=== PATIENT | female | born 1990 | race Caucasian/White ===

== ENCOUNTER → 2019-03-05 21:46 | Observation (INO) ==
[2019-03-05 19:09] LABS: Bilirubin,Urine Negative (Negative); Blood,Urine Negative (Negative); Clarity,Urine Turbid (Clear); Color,Urine Yellow (Yellow); Glucose,Urine (UA) Normal (Normal); Ketones,Urine Negative (Negative); Leukocyte Esterase,Urine Negative (Negative); Nitrite,Urine Negative (Negative); Protein,Urine Trace mg/dL (Neg-Trace); Specific Gravity,Urine 1.027 (1.010-1.025); Urobilinogen,Urine Normal (Normal)
[2019-03-05 19:14] LABS: Bacteria,Urine Few per hpf (None-Few); Hyaline Casts,Urine None Seen per lpf (None-Few); Squamous Epithelial Cell,Urine Many per lpf (None-Few)
[2019-03-05 19:18] LABS: Amphetamine Screen,Urine Negative ng/mL (Cutoff=1000); Barbiturate Screen,Urine Negative ng/mL (Cutoff=200); Benzodiazepines Screen,Urine Negative ng/mL (Cutoff=200); Cannabinoid Screen,Urine Negative ng/mL (Cutoff = 50); Cocaine Screen,Urine Negative ng/mL (Cutoff= 300); Opiate Screen,Urine Negative ng/mL (Cutoff=300); Phencyclidine Screen,Urine Negative ng/mL (Cutoff=25)
--- NOTE | 2019-03-05 19:40 | Discharge Summary ---
Date of Encounter: 03/05/19 Time of Encounter: 19:39 - Discharge Diagnosis (1) 29 weeks gestation of Priority: Primary Status: Acute Comments: Admit to observation for complaint of possible fluid leakage. FHR 130 bpm, moderate variability, appropriate for gestational age. (2) Vaginal discharge during in third trimester Priority: Secondary Status: Acute Comments: Vaginosis panel collected, will treat as appropriate for any positive results. FERN and nitrazine negative. - Discharge Medications Prescriptions: No Action Fexofenadine/Pseudoephedrine [Kristin-D 24 Hour Tablet] 1 tab PO DAILY Pnv Plus Multivit Tab 1 tab PO DAILY Benefiber Healthy Shape 2 drop PO DAILY Home Medications: Benefiber Healthy Shape 2 drop PO DAILY 03/05/19 [History] Fexofenadine/Pseudoephedrine [Kristin-D 24 Hour Tablet] 1 tab PO DAILY 03/05/19 [History] Pnv Plus Multivit Tab 1 tab PO DAILY 03/05/19 [History] Allergies/Adverse Reactions: Allergy/AdvReac Type Severity Reaction Status Date / Time pantoprazole Allergy Hives Verified 03/05/19 18:25 pseudoephedrine AdvReac See Verified 03/05/19 18:26 [From Sudafed] Comments Data Procedures and tests throughout hospitalization: Laboratory Tests 03/05/19 03/05/19 18:50 18:50 Urine Color Yellow Urine Clarity Turbid A Urine pH 7.0 Ur Specific [place] 1.027 H Urine Protein Trace Urine Glucose (UA) Normal Urine Ketones Negative Urine Blood Negative Urine Nitrite Negative Urine Bilirubin Negative Urine Urobilinogen Normal Ur Leukocyte Esterase Negative Urine Microscopic WBC 3-5 H Ur Squamous Epith Cells Many H Urine Bacteria Few Hyaline Casts None Seen Ur Culture Indicated? YES A Urine Opiates Screen Negative Ur Buprenorphine Scrn Negative Ur Barbiturates Screen Negative Ur Phencyclidine Scrn Negative Ur Amphetamines Screen Negative U Benzodiazepines Scrn Negative Urine Cocaine Screen Negative U Marijuana (THC) Screen Negative Ur Drug Screen Interp See Below Labs on day of discharge: Labs from last 24 hours 03/05/19 03/05/19 18:50 18:50 Urine Color Yellow Urine Clarity Turbid A Urine pH 7.0 Ur Specific [place] 1.027 H Urine Protein Trace Urine Glucose (UA) Normal Urine Ketones Negative Urine Blood Negative Urine Nitrite Negative Urine Bilirubin Negative Urine Urobilinogen Normal Ur Leukocyte Esterase Negative Urine Microscopic WBC 3-5 H Ur Squamous Epith Cells Many H Urine Bacteria Few Hyaline Casts None Seen Ur Culture Indicated? YES A Urine Opiates Screen Negative Ur Buprenorphine Scrn Negative Ur Barbiturates Screen Negative Ur Phencyclidine Scrn Negative Ur Amphetamines Screen Negative U Benzodiazepines Scrn Negative Urine Cocaine Screen Negative U Marijuana (THC) Screen Negative Ur Drug Screen Interp See Below Date of admission: 03/05/19 17:45 Discharging clinician: Karuna Lewis Anticipated date of discharge: 03/05/19 - Patient Status Disposition: Home, Self-Care Condition: Good Functional capacity at discharge: independent ambulation Overall status at discharge: patient is progressing back to baseline - Discharge Instructions Follow Up With: Marysol Velasco CNM [Non-Partnered Physician] - - Diet and Activity Activity: resume usual activities as tolerated Diet: regular diet 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 Denies odor or color to the fluid. On admit, nitrazine was negative. SSE completed and moderate amount of thin white vaginal discharge noted and small amount of thick mucous noted adhered to vaginal wall. Sample obtained for vaginosis panel and sent to the lab. Will treat as indicated for any positive results. Some irregular contractions were noted so one dose of SQ Terbutaline was given and soon after no contractions were visualized. Patient was PO hydrated and began feeling less cramping discomfort. She reports positive movement, denies vaginal bleeding. Time Attestation: Total time spent providing and/or coordinating discharge services: Time Spent: Less than 30 minutes Exam - Constitutional General appearance IM: A&O X 3, pleasant, no acute distress, answers questions appropriately - Respiratory Respiratory exam: Present: CTAB. Absent: respiratory distress - Cardiovascular Cardiovascular exam IM: Present: RRR, +S1, +S2. Absent: irregular rhythm - GI/Abdominal GI/Abdominal exam IM: normal bowel sounds, soft - Rectal Rectal exam: deferred - External exam: normal external exam - Extremities Exam Extremities exam IM: Present: full ROM, normal capillary refill, normal inspection. Absent: calf tenderness - Neurological Exam Neurological exam: alert, normal gait, oriented X3 - VTE Reasons for not Prescribing Prophylaxis: Treatment not Indicated - Low risk for VTE
[2019-03-05 20:57] LABS: Gardnerella DNA Not Detected (Not Detect); Trichomonas DNA Not Detected (Not Detect)
[2019-03-05 20:58] LABS: Candida DNA Not Detected (Not Detect)
[~2019-03-05 21:46] MED LIST: Terbutaline 1 MG/ML VIAL SQ ONE
== END | disposition home or self-care (01) ==
LOC: 1NENULAB
PROVIDERS: ADMIT Registered Nurse; ATTEND Registered Nurse

== ENCOUNTER → 2019-05-01 20:40 | Observation (INO) ==
[2019-05-01 18:21] LABS: Amphetamine Screen,Urine Negative ng/mL (Cutoff=1000); Barbiturate Screen,Urine Negative ng/mL (Cutoff=200); Benzodiazepines Screen,Urine Negative ng/mL (Cutoff=200); Cannabinoid Screen,Urine Negative ng/mL (Cutoff = 50); Cocaine Screen,Urine Negative ng/mL (Cutoff= 300); Opiate Screen,Urine Negative ng/mL (Cutoff=300); Phencyclidine Screen,Urine Negative ng/mL (Cutoff=25)
--- NOTE | 2019-05-01 20:39 | Discharge Summary ---
Date of Encounter: 05/01/19 Time of Encounter: 20:40 - Discharge Diagnosis (1) 38 weeks gestation of Priority: Primary Status: Acute Comments: admitted for labor evaluation no cervical change false labor (2) NST (non-stress test) reactive on surveillance Priority: Secondary Status: Acute Comments: FHR 125 bpm moderate variability +15x15 accels no decels noted. Cat. 1 tracing - Discharge Medications Prescriptions: No Action Fexofenadine/Pseudoephedrine [Kristin-D 24 Hour Tablet] 180 mg PO DAILY Pnv Plus Multivit Tab 1 tab PO DAILY Benefiber Healthy Shape 2 drop PO DAILY Home Medications: Benefiber Healthy Shape 2 drop PO DAILY 03/05/19 [History] Fexofenadine/Pseudoephedrine [Kristin-D 24 Hour Tablet] 180 mg PO DAILY 03/05/19 [History] Pnv Plus Multivit Tab 1 tab PO DAILY 03/05/19 [History] Allergies/Adverse Reactions: Allergy/AdvReac Type Severity Reaction Status Date / Time pantoprazole Allergy Hives Verified 03/05/19 18:25 pseudoephedrine AdvReac See Verified 03/05/19 18:26 [From Sudafed] Comments Data Procedures and tests throughout hospitalization: Laboratory Tests 05/01/19 18:00 Urine Opiates Screen Negative Ur Buprenorphine Scrn Negative Ur Barbiturates Screen Negative Ur Phencyclidine Scrn Negative Ur Amphetamines Screen Negative U Benzodiazepines Scrn Negative Urine Cocaine Screen Negative U Marijuana (THC) Screen Negative Ur Drug Screen Interp See Below Labs on day of discharge: Labs from last 24 hours 05/01/19 18:00 Urine Opiates Screen Negative Ur Buprenorphine Scrn Negative Ur Barbiturates Screen Negative Ur Phencyclidine Scrn Negative Ur Amphetamines Screen Negative U Benzodiazepines Scrn Negative Urine Cocaine Screen Negative U Marijuana (THC) Screen Negative Ur Drug Screen Interp See Below Date of admission: 05/01/19 17:47 Discharging clinician: Mckayla Hernadez Anticipated date of discharge: 05/01/19 - Patient Status Disposition: Home, Self-Care Condition: Good Functional capacity at discharge: independent ambulation - Discharge Instructions Follow Up With: Denisse Vázquez [Advanced Practice Nurse] - - Diet and Activity Activity: increase activity as tolerated Diet: regular diet 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 Patient denies any LOF or VB. Patient reports good movement Time Attestation: Total time spent providing and/or coordinating discharge services: Time Spent: Less than 30 minutes Exam - Constitutional General appearance IM: A&O X 3, no acute distress, answers questions appropriately - Respiratory Respiratory exam: Present: CTAB - Cardiovascular Cardiovascular exam IM: Present: RRR, +S1, +S2 - GI/Abdominal GI/Abdominal exam IM: normal bowel sounds - Other Additional findings: SVE 2/80/-1 per RN no cervical change after 2 hours. FHR 125 bpm moderate variability +15x15 accels no decels noted. Irregular contractions noted. CAt. 1 tracing - VTE Reasons for not Prescribing Prophylaxis: Treatment not Indicated - Low risk for VTE
== END | disposition home or self-care (01) ==
LOC: 1NENULAB
PROVIDERS: ADMIT Advanced Practice Midwife; ATTEND Advanced Practice Midwife

== ENCOUNTER 2019-05-03 02:37 | Inpatient (IN) ==
[2019-05-03] MEDS ORDERED: Naloxone 0.4 MG/ML INJ IVP PRN (02:52)
[2019-05-03] MEDS ORDERED: Famotidine 20 MG/2 ML VIAL IVP PRN (02:52)
[2019-05-03] MEDS ORDERED: Ondansetron 4 MG/2 ML VIAL IVP PRN (02:52)
[2019-05-03] MEDS ORDERED: Metoclopramide 10 MG/2 ML VIAL IVP PRN (02:52)
[2019-05-03] MEDS ORDERED: Ringers Solution, Lactated 1,000 ML IVC SCH (03:00)
[2019-05-03 03:29] LABS: Basophils % 0.4 %; Eosinophils # 0.1 K/mcL (0.0-0.6); Eosinophils % 0.6 %; Hematocrit 40.4 % (35.3-44.9); Hemoglobin 13.8 g/dL (11.5-15.4); Immature Granulocytes % 0.3 % (0-4); Immature Platelets 26.8 % (1.1-6.1); Lymphocytes # 2.1 K/mcL (0.6-4.6); Lymphocytes % 20.6 %; Mean Corpuscular HGB Conc 34.2 g/dL (31.6-35.5); Mean Corpuscular Hemoglobin 33.2 pg (28.0-33.3); Mean Corpuscular Volume 97.1 fL (83.0-100.0); Mean Platelet Volume 14.2 fL (9.4-12.4); Monocytes # 0.7 K/mcL (0.0-1.3); Neutrophils # 7.1 K/mcL (1.6-8.9); Platelet Count 108 K/mcL (140-400); Red Blood Count 4.16 M/mcL (3.82-4.97); Red Cell Distribution Width 12.3 % (11.5-14.5); Segmented Neutrophils % 71.1 %
[2019-05-03 03:33] LABS: Amphetamine Screen,Urine Negative ng/mL (Cutoff=1000); Barbiturate Screen,Urine Negative ng/mL (Cutoff=200); Benzodiazepines Screen,Urine Negative ng/mL (Cutoff=200); Cannabinoid Screen,Urine Negative ng/mL (Cutoff = 50); Cocaine Screen,Urine Negative ng/mL (Cutoff= 300); Opiate Screen,Urine Negative ng/mL (Cutoff=300); Phencyclidine Screen,Urine Negative ng/mL (Cutoff=25)
--- NOTE | 2019-05-03 05:58 | OB/GYN History & Physical ---
Date of Encounter: 05/03/19 Time of Encounter: 05:54 Assessment and Plan (1) SROM (spontaneous rupture of membranes) Current visit: Yes Status: Acute SROM at 0130 for clear fluid. Admit for expectant management. Will augment only if necessary. Anticipate . (2) Rh negative state in antepartum period Current visit: Yes Status: Acute (3) 38 weeks gestation of Current visit: No Status: Acute History of Present Illness Chief complaint: SROM 0130 HPI: Ms. Saeed is a 28 year old female presenting at 38w2d with c/o a large gush of clear fluid at 0130. She has continued to leak since. She also reports contractions but they were irregular at time of arrival. This has been uncomplicated other than macrosomia with weighing 3346g 90%tile at 36 weeks. A negative Rubella immune Varicella immune Serologies negative GBS negative Past Med Surg Social Fam HX - Past Medical History Medical history: other Additional medical history: Raynauds disease Psychiatric history: no psych history - Past Surgical History Surgical History: no surgical history Additional surgical history: wisdom teeth - Social History Smoking Status: Never smoker Smokeless Tobacco Status: No Alcohol use: none Drug use: none - Family History Father Adopted: No Family Member Ethnicity: Non- Living Status: Still Living Hx Family Cardiac Disorders: Yes (HTN) Hx Family Respiratory Disorders: No Hx Family Cancer: No Hx Family GI Disorders: No Hx Family Genitourinary Disorders: No Hx Family Endocrine Disorder: No Hx Family Musculoskeletal Disorders: No Hx Family Neuromuscular Disorders: No Hx Family Neurologic Disorders: No Hx Family HEENT Disorders: No Hx Family Autoimmune Disorders: No Hx Family Reproductive Disorders: No Hx Family Psychosocial Disorders: No Hx Family Medical Disorders: No Obstetrical History - Pregnancies : 1 Medications and Allergies Benefiber Healthy Shape 2 drop PO DAILY 03/05/19 [History] Fexofenadine/Pseudoephedrine [Kristni-D 24 Hour Tablet] 180 mg PO DAILY 03/05/19 [History] Pnv Plus Multivit Tab 1 tab PO DAILY 03/05/19 [History] Allergy/AdvReac Type Severity Reaction Status Date / Time pantoprazole Allergy Hives Verified 03/05/19 18:25 pseudoephedrine AdvReac See Verified 03/05/19 18:26 [From Sudafed] Comments Review of System OB All systems PM: reviewed and no additional remarkable complaints except as stated Exam - Constitutional Constitutional: well developed, well nourished, average body habitus - HEENT HEENT: Mucus Membranes Moist - Lungs Respiratory exam: CTAB - Cardiovascular Cardiovascular exam: RRR - Breasts Breast: bilateral: normal - Abdomen Abdomen: Present: gravid, non tender - Extremities Extremities exam: normal inspection - Cervix Dilation: 3 (per RN on arrival) - Anus/Rectum Anus/Rectum: Present: normal perianal skin Results Result Diagrams: 05/03/19 03:00 Abnormal lab results Plt Count 108 K/mcL (140-400) L 05/03/19 03:00 MPV 14.2 fL (9.4-12.4) H 05/03/19 03:00 Immature Plt Fraction 26.8 % (1.1-6.1) H 05/03/19 03:00 All other labs normal. - VTE Reasons for not Prescribing Prophylaxis: Treatment not Indicated - Low risk for VTE
--- NOTE | 2019-05-03 09:50 | OB Labor Progress Note ---
Date of Encounter: 05/03/19 Time of Encounter: 09:48 Labor Progress Note - Subjective Subjective: Patient breathing through contractions. Discussed POC at this time. Patient denies any questions or concerns. - Cervix Cervix: 3/90/-1 - Heart Tones Heart Tones: 130 bpm moderate variability +15x15 accels no decels noted. cat. 1 tracing - [place]: 2-3 min apart - Interventions Interventions: SVE - Plan Physician notified: No Plan: Continue labor management at this time
[2019-05-03] MEDS ORDERED: Oxytocin 20 units/ LR 1000 mL 20 UNIT/1,000 ML BAG IVC SCH (12:00)
[2019-05-03] MEDS ORDERED: Oxytocin 20 units/ LR 1000 mL 20 UNIT/1,000 ML BAG IVC ONE (12:01)
[2019-05-03] MEDS: *HR* Nalbuphine 10 MG/ML AMPUL IVP PRN ×2 (12:06→14:56)
--- NOTE | 2019-05-03 15:41 | OB Labor Progress Note ---
Date of Encounter: 05/03/19 Time of Encounter: 15:39 Labor Progress Note - Subjective Subjective: Patient interested in Epidural. POC discussed with patient. - Cervix Cervix: 5/100/-1 - Heart Tones Heart Tones: 115 bpm moderate variability +15x15 accels no decels noted. - [place]: 2-3 min apart - Interventions Interventions: SVE - Plan Physician notified: Yes Physician notified details: updated on SVE Plan: Continue labor management Epidural when desired
[2019-05-03] MEDS ORDERED: Epidural Premix (fent/bupiv) 110 ML EP ONE (16:06)
[2019-05-03] MEDS ORDERED: Bupivacaine-MPF 0.25% 10 ML VIAL ONE ×2 (16:07→16:44)
[2019-05-03] MEDS ORDERED: *HR* FentaNYL (PF) 100 MCG/2 ML VIAL ONE ×2 (16:07→23:50)
--- NOTE | 2019-05-03 20:47 | Anesthesia Evaluation PreOp ---
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 History: Denies Any Significant HX Other Medical History: Denies Any Significant HX Anesthesia History: No Prior Anesthetic Complications, Past Anesthesia (wisdom teeth, no problems, no FHAP.) : Yes Alcohol Use: none Drug use: none Medications and Allergies Benefiber Healthy Shape 2 drop PO DAILY 03/05/19 [History] Fexofenadine/Pseudoephedrine [Kristin-D 24 Hour Tablet] 180 mg PO DAILY 03/05/19 [History] Pnv Plus Multivit Tab 1 tab PO DAILY 03/05/19 [History] Allergy/AdvReac Type Severity Reaction Status Date / Time pantoprazole Allergy Hives Verified 03/05/19 18:25 pseudoephedrine AdvReac See Verified 03/05/19 18:26 [From Sudafed] Comments - Meds/Allergy Pre-op Review Medications Reviewed: Yes Allergies Reviewed: Yes Beta Blockers on Current Med List: No Anesthesia Results - Labs 05/03/19 03:00 Anesthesia Exam 120/77, 90, 16, FHTs 140s. Height: 5'8" Weight: 77kg NPO (# of Hours): >8 Pain Scale: 6 Pain Scale Used: Numeric (1 - 10) - HEENT Pupil (Motor): Pupils equal Mallampati: II Teeth: Normal Oral Opening: Greater than 3 - COLD ROLL PACKER SHEET IRON LOC: Oriented COLD ROLL PACKER SHEET IRON Motor: Normal RUE, Normal LUE, Normal RLE, Normal LLE, Normal Face COLD ROLL PACKER SHEET IRON Sensory: Normal: RUE, LUE, RLE, LLE, Face - Cardiac Rhythm: Regular - Pulmonary Breath Sounds: bilateral Clear Respiratory Effort: Symmetrical Anesthesia Assess/Plan ASA Score: 2 Level of consciousness: Cooperative, Oriented, Tranquil Anesthetic Plan: Epidural Recovery Plan: PACU
--- NOTE | 2019-05-03 20:52 | Anesthesia Procedures ---
Date of Encounter: 05/03/19 Time of Encounter: 16:09 Procedures: Anesthesia - Epidural/Spinal Patient ID/Chart reviewed: Yes Patient examined: Yes OB Eval: Gestational age: 38 OB Eval: : 1 OB Eval: Hx Para: 0 OB Eval: Dilated at (cm): 5 OB Eval: Contractions: Non-stressed pattern Consent Obtained: Yes Supplemental Oxygen: None/Room Air Site Prep: Aseptic Technique, Sterile prep and drape, 0.5% Chlorhexidine/Alcohol Patient position: upright Local Anesthetic: Lidocaine 1% Amount of Local Anesthetic used: 3 Touhy Needle Gauge: 18 Touhy Needle Depth (cm): 6 Catheter Depth at Skin (cm): 11 Test Dose (1.5% Lido + Epi): Volume given (mls): 3 Test Dose Result: Negative Loading Dose: 0.25% Marcaine (mls): 5 Loading Dose: Fentanyl (mcg): 100 Loading Dose Administered: Thru Catheter Infusion Med: 0.125% Bupivacaine w/ 2 mcg/ml Fentanyl Infusion Rate (mls/hr): [address]: Tegaderm, Tape Interspace Used: L3-L4 Loss of Resistance (AVIS): Yes Blood: No CSF: No Paresthesia: No Procedure: attempted first at L2-3, proceeded through steps of epidural including dural puncture technique with 25 gauge ananth, dosed with loading dose as charted and started pump as charted, however, she continued to have significant contraction pain only on the left side. Attempted positioning on left side and pulling catheter back 1cm without relief. Pulled epidural cath, blue tip intact. reinserted following same technique at L3-4 except did not perform dural puncture again. Dosed catheter with 5ml 0.25% bupivacaine with relief of pain to left side. Drip continued at 15ml per hour with 5ml demand bolus q 20 mins, and limit of 2 per hour. Vitals + FHT's: Vital Signs Time 1609 1626 1630 1635 1640 1645 1705 1710 1715 BP 106/65 107/71 118/70 114/70 117/74 102/58 71330/72 111/60 107/66 Pulse 95 111 83 94 83 91 90 90 91 FHTs 120 120 120 120 120 120 120 120 120
[2019-05-03] MEDS ORDERED: Epidural Premix (fent/bupiv) 110 ML EP SCH (21:00)
[2019-05-03] MEDS ORDERED: Lidocaine -MPF 1% 2 ML VIAL ONE (23:38)
[2019-05-03] MEDS ORDERED: Lidocaine/EPI 1:200k 2% PF 20 ML VIAL ONE (23:50)
--- NOTE | 2019-05-04 00:18 | Event Note ---
Date of Encounter: 05/04/19 Time of Encounter: 00:15 , Machine Cleaner to evaluate perineum after vaginal delivery of a pound 15 ounce . On examination this patient was found to have a fourth degree laceration. At this time I took over repair. Patient was examined. Using 4-0 Vicryl suture I reapproximated the mucosa of the rectum. We then imbricated over this a second layer for added support still using 4-0 Vicryl suture. At this time the rectal sphincter was then located bilaterally. This was grasped with 2 Allis clamps. Using 0 Vicryl suture in [id number] at 45 degree angles 4 sets of sutures were placed pulling the rectal sphincter back together. Then utilizing 3-0 Vicryl suture in the perineum was then pulled back together in episiotomy fashion. First building up the mucosa and the perineal body itself. The mucosa was then reapproximated in episiotomy fashion. At the end of the repair the rectocele was palpated. There was no suture noted in the rectum itself. The muscle palpated together. Patient tolerated the procedure well. There is no bleeding.
--- NOTE | 2019-05-04 00:29 | OB/GYN Procedure Note ---
Delivery - Delivery Date: 05/04/19 Provider: Marysol Velasco Intrapartum events: none Delivery induction: none Delivery augmentation: pitocin Delivery monitor: external FHT, internal uterine Anesthesia: epidural Quantitated Blood Loss: 100 - (s) Infant A Delivery Date: 05/04/19 Delivery Time: 23:24 Presentation: vertex Position: OA Route of delivery: Gender: Male Viability: Viable Pounds: 8 Ounces: 15 Weight Gram: 4050 kg at 1 minute: 8 at 5 mins: 9 Shoulder Dystocia: not encountered Specimens collected: cord blood Placenta: spontaneous Cord: 3 umbilical vessels - Repair Episiotomy: none Laceration Description: Perineal - 4th Degree - Complications Delivery complications: none - Disposition Mom disposition: stable in LDR [place] disposition: stable in LDR - Comments Comments: Pt presented following SROM at home and underwent labor augmentation with pitocin. She progressed well to for viable male weighing 8lbs 15oz with apgars 8 at one minute and 9 at five minutes. No nuchal or shoulder dystocia was encountered. At five minutes of life the cord was clamped and cut and the placenta delivered spontaneous and intact. A fourth degree perineal laceration was identified and Dr. Marti was called for repair. See Event note. EBL 100ml. Mother and baby stable in kangaroo care following .
--- NOTE | 2019-05-04 00:59 | Anesthesia Progress Note ---
Date of Encounter: 05/04/19 Time of Encounter: 23:52 Anesthesia Note - Note Note: 05/04/19 00:57 called to LDR 8 after delivery of baby, experienced 4th degree tears and having pain during repair. Requested redose of epidural to decrease pain. Dosed with 5ml 2% lidocain with epi and 100mcg fentanyl. VS: 123/74, 93 and 5 mins. later 121/74, 94. Patient reports relief of pain.
[2019-05-04] MEDS ORDERED: Benzocaine/Menthol 56 GM AEROSOL SPRAY TP PRN (03:41)
[2019-05-04] MEDS ORDERED: Sennosides 8.6 MG TABLET PO PRN (03:41)
[2019-05-04] MEDS ORDERED: Oxytocin 20 units/ LR 1000 mL 20 UNIT/1,000 ML BAG IVC SCH (03:41)
[2019-05-04] MEDS ORDERED: Lanolin 7 G OINT...G. TP PRN (03:41)
[2019-05-04] MEDS ORDERED: Acetaminophen 325 MG TABLET PO PRN (03:41)
[2019-05-04 06:07] LABS: Eosinophils % 0.1 %
[2019-05-04 06:10] LABS: Basophils % 0.3 %; Hematocrit 39.6 % (35.3-44.9); Hemoglobin 13.2 g/dL (11.5-15.4); Immature Granulocytes % 0.3 % (0-4); Immature Platelets 25.3 % (1.1-6.1); Lymphocytes % 7.9 %; Mean Corpuscular HGB Conc 33.3 g/dL (31.6-35.5); Mean Corpuscular Hemoglobin 33.3 pg (28.0-33.3); Mean Platelet Volume 13.1 fL (9.4-12.4); Monocytes # 0.8 K/mcL (0.0-1.3); Monocytes % 5.4 %; Red Blood Count 3.96 M/mcL (3.82-4.97); Red Cell Distribution Width 12.4 % (11.5-14.5); White Blood Count 14.5 K/mcL (4.3-11.1)
[2019-05-04 06:12] LABS: Lymphocytes # 1.2 K/mcL (0.6-4.6); Neutrophils # 12.5 K/mcL (1.6-8.9); Platelet Count 80 K/mcL (140-400)
[2019-05-04] MEDS: Prenatal Vit/FA 1 EACH TABLET PO SCH (08:24)
[2019-05-04] MEDS: Ketorolac 30 MG/ML VIAL IVP PRN ×3 (08:24→22:51)
[2019-05-04] MEDS: *HR* HYDROcodone/Acet 5/325 mg TABLET PO PRN ×2 (10:54→17:22)
--- NOTE | 2019-05-04 14:34 | OB/GYN Progress Note ---
Date of Encounter: 05/04/19 Time of Encounter: 14:32 - Assessment and Plan (1) Vaginal delivery Current Visit: Yes Status: Acute Continue routine care anticipate discharge home tomorrow (2) Fourth degree laceration of perineum during delivery, Current Visit: Yes Status: Acute Continue stool softeners daily ice pack to perineum sitz bath prn 2 week follow up in office (3) Breast feeding status of mother Current Visit: Yes Status: Acute support prn Subjective - Subjective Principal diagnosis: postop day 1 vaginal delivery with 4th degree laceration Interval history: Patient is day 1 status post vaginal delivery with 4th degree laceration. Patient has not had a bowel movement yet. Patient reports pain control is good at this time. Patient is breast feeding male . Patient reports: appetite normal, voiding normally, pain well controlled, ambulating normally [place]: doing well, nursing well Objective - Latest Vital Signs Latest vital signs: Vital Signs Temp Pulse Resp BP Pulse Ox 05/04/19 09:30 98.4 F 83 16 117/79 05/04/19 05:45 98.3 F 82 16 109/63 98 05/04/19 04:45 98.3 F 87 16 113/76 97 05/04/19 03:30 98.1 F 99 16 100/68 100 Intake and Output 05/03/19 05/04/19 05/04/19 23:59 07:59 15:59 Intake Total 120 / 120 Output Total 2100 / 3100 1000 / 3100 Balance -2100 / -2980 -880 / -2980 Intake: Oral 120 / 120 Output: Urine 1000 / 2000 1000 / 2000 Estimated Blood Loss 100 / 100 Catheter 1000 / 1000 Other: Meal Breakfast Percent of Meal Consumed 10% Weight 75.6 kg Patient Weight 05/04/19 23:59 Weight 75.6 kg - Exam Lungs: bilateral: normal Chest: Normal S1, Normal S2 Extremities: Present: normal Abdomen: Present: normal appearance, soft Uterus: Present: normal, firm Uterus Position: At Umbilicus, Midline - Labs Labs: Laboratory Results - last 24 hr 05/04/19 05/04/19 00:49 05:47 WBC 14.5 H RBC 3.96 Hgb 13.2 Hct 39.6 MCV 100.0 MCH 33.3 MCHC 33.3 RDW 12.4 Plt Count 80 L MPV 13.1 H Immature Gran % 0.3 Seg Neutrophils % 86.0 Lymphocytes % 7.9 Monocytes % 5.4 Eosinophils % 0.1 Basophils % 0.3 Neutrophils # 12.5 H Lymphocytes # 1.2 Monocytes # 0.8 Eosinophils # 0.0 Basophils # 0.0 Immature Plt Fraction 25.3 H Screen NEGATIVE Baby's Blood Type A RH POSITIVE Mother's Blood Type A RH NEGATIVE Rhogam Indicated YES Rhogam Req for Mother 1
[2019-05-04] MEDS ORDERED: Rho Immune Globulin 1,500 UNIT SYRINGE IM ONE (15:22)
--- NOTE | 2019-05-04 18:38 | Anesthesia Progress Note ---
Date of Encounter: 05/04/19 Time of Encounter: 06:39 Anesthesia Note - Note Note: called to assess, prolonged numbness reported, pt. lower inner quad muscle to upper and lower knee down to mid calf ant/post. (pings and needles sensation) muscle strength ankle 5+ flexion and dorsiflexion no sensation abnormalities reported in foot bilateral. was told pt received 2 more bolus post del and was still very numb this AM 7-8 hrs after inj. (everywhere). I do feel at this point no reported muscle weakness no regression of numbness reported. and it has progressively got better. 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 informed patient to seek tx if this gets worse or not any better in 12- 24hrs. informed her may need neuro consult if this does not clear up. and to cont to have assistance with amb. VSS. please re-consult if needed. thank you. 05/04/19 18:37 05/04/19 18:55
[2019-05-04] MEDS ORDERED: MOM Conc 10 ML UD.LIQ PO SCH (21:00)
[2019-05-04] MEDS: cephALEXin 500 MG CAPSULE PO SCH (22:52)
[2019-05-05] MEDS: *HR* HYDROcodone/Acet 5/325 mg TABLET PO PRN (06:23)
[2019-05-05 07:31] LABS: Basophils % 0.4 %; Eosinophils # 0.1 K/mcL (0.0-0.6); Eosinophils % 0.9 %; Hematocrit 36.7 % (35.3-44.9); Hemoglobin 12.2 g/dL (11.5-15.4); Immature Granulocytes % 0.3 % (0-4); Immature Platelets 19.9 % (1.1-6.1); Lymphocytes # 1.5 K/mcL (0.6-4.6); Lymphocytes % 16.6 %; Mean Corpuscular HGB Conc 33.2 g/dL (31.6-35.5); Mean Corpuscular Hemoglobin 33.2 pg (28.0-33.3); Mean Platelet Volume 13.4 fL (9.4-12.4); Monocytes # 0.6 K/mcL (0.0-1.3); Monocytes % 6.1 %; Neutrophils # 6.9 K/mcL (1.6-8.9); Red Blood Count 3.67 M/mcL (3.82-4.97); Red Cell Distribution Width 12.4 % (11.5-14.5); Segmented Neutrophils % 75.7 %; White Blood Count 9.1 K/mcL (4.3-11.1)
[2019-05-05 07:34] LABS: Platelet Count 77 K/mcL (140-400)
[2019-05-05 08:38] VITALS: BP 92/59
--- NOTE | 2019-05-05 08:53 | Discharge Summary ---
Date of Encounter: 05/05/19 Time of Encounter: 08:51 - Discharge Diagnosis (1) Vaginal delivery Priority: Primary Status: Acute Comments: Continue routine care discharge home today follow up with Anant [facility] in 2 weeks (2) Fourth degree laceration of perineum during delivery, Priority: Secondary Status: Acute Comments: Continue Colace daily Miralax prn [facility] sitz bath 2 week follow up (3) Breast feeding status of mother Priority: Secondary Status: Acute Comments: support prn (4) Thrombocytopenia Priority: Secondary Status: Acute Comments: repeat cbc in 2 weeks - Discharge Medications Prescriptions: New Docusate Sodium [Colace] 100 mg PO BID #60 capsule Ibuprofen [Ibu] 600 mg PO Q6HR PRN #60 tablet PRN Reason: cramping HYDROcodone/Acet 5/325 mg [[place] 5-325 mg] 1 tab PO Q6H PRN 7 Days #28 tab PRN Reason: Moderate Pain cephALEXin [Keflex] 500 mg PO BID #10 capsule No Action Fexofenadine/Pseudoephedrine [Kristin-D 24 Hour Tablet] 180 mg PO DAILY Pnv Plus Multivit Tab 1 tab PO DAILY Benefiber Healthy Shape 2 drop PO DAILY Home Medications: Benefiber Healthy Shape 2 drop PO DAILY 03/05/19 [History] Fexofenadine/Pseudoephedrine [Kristin-D 24 Hour Tablet] 180 mg PO DAILY 03/05/19 [History] Pnv Plus Multivit Tab 1 tab PO DAILY 03/05/19 [History] Docusate Sodium [Colace] 100 mg PO BID #60 capsule 05/04/19 [Rx] HYDROcodone/Acet 5/325 mg [[place] 5-325 mg] 1 tab PO Q6H PRN 7 Days #28 tab 05/04/19 [Rx] Ibuprofen [Ibu] 600 mg PO Q6HR PRN #60 tablet 05/04/19 [Rx] cephALEXin [Keflex] 500 mg PO BID #10 capsule 05/04/19 [Rx] Allergies/Adverse Reactions: Allergy/AdvReac Type Severity Reaction Status Date / Time pantoprazole Allergy Hives Verified 03/05/19 18:25 pseudoephedrine AdvReac See Verified 03/05[facility]19 [facility] Comments Data Procedures and tests throughout hospitalization: Laboratory Tests 0805/03/19 05/04/19 03:00 03:00 00:49 WBC 10.0 RBC 4.16 Hgb 13.8 Hct 40.4 MCV 97.1 MCH 33.2 MCHC 34.2 RDW 12.3 Plt Count 108 L MPV 14.2 H Immature Gran % 0.3 Seg Neutrophils % 71.1 Lymphocytes % 20.6 Monocytes % 7.0 Eosinophils % 0.6 Basophils % 0.4 Neutrophils # 7.1 Lymphocytes # 2.1 Monocytes # 0.7 Eosinophils # 0.1 Basophils # 0.0 Immature Plt Fraction 26.8 H Urine Opiates Screen Negative Ur Buprenorphine Scrn Negative Ur Barbiturates Screen Negative Ur Phencyclidine Scrn Negative Ur Amphetamines Screen Negative U Benzodiazepines Scrn Negative Urine Cocaine Screen Negative U Marijuana (THC) Screen Negative Ur Drug Screen Interp See Below Screen NEGATIVE Baby's Blood Type A RH POSITIVE Mother's Blood Type A RH NEGATIVE Rhogam Indicated YES Rhogam Req for Mother 1 05/04/19 05/05/19 05:47 07:00 WBC 14.5 H 9.1 RBC 3.96 3.67 L Hgb 13.2 12.2 Hct 39.6 36.7 MCV 100.0 100.0 MCH 33.3 33.2 MCHC 33.3 33.2 RDW 12.4 12.4 Plt Count 80 L 77 L MPV 13.1 H 13.4 H Immature Gran % 0.3 0.3 Seg Neutrophils % 86.0 75.7 Lymphocytes % 7.9 16.6 Monocytes % 5.4 6.1 Eosinophils % 0.1 0.9 Basophils % 0.3 0.4 Neutrophils # 12.5 H 6.9 Lymphocytes # 1.2 1.5 Monocytes # 0.8 0.6 Eosinophils # 0.0 0.1 Basophils # 0.0 0.0 Immature Plt Fraction 25.3 H 19.9 H Urine Opiates Screen Ur Buprenorphine Scrn Ur Barbiturates Screen Ur Phencyclidine Scrn Ur Amphetamines Screen U Benzodiazepines Scrn Urine Cocaine Screen U Marijuana (THC) Screen Ur Drug Screen Interp Screen Baby's Blood Type Mother's Blood Type Rhogam Indicated Rhogam Req for Mother Labs on day of discharge: Labs from last 24 hours 05/05/19 05/04/19 07:00 00:49 WBC 9.1 RBC 3.67 L Hgb 12.2 Hct 36.7 MCV 100.0 MCH 33.2 MCHC 33.2 RDW 12.4 Plt Count 77 L MPV 13.4 H Immature Gran % 0.3 Seg Neutrophils % 75.7 Lymphocytes % 16.6 Monocytes % 6.1 Eosinophils % 0.9 Basophils % 0.4 Neutrophils # 6.9 Lymphocytes # 1.5 Monocytes # 0.6 Eosinophils # 0.1 Basophils # 0.0 Immature Plt Fraction 19.9 H Screen NEGATIVE Baby's Blood Type A RH POSITIVE Mother's Blood Type A RH NEGATIVE Rhogam Indicated YES Rhogam Req for Mother 1 Date of admission: 05/03/19 02:37 Primary care physician: Arslan Gonzalez Jr, MD Consults: 05/04/19 03:41 Consult to [employer] [CONS] Routine Comment: Vaginal delivery, consult needed Discharging clinician: Mckayla Hernadez Anticipated date of discharge: 05/05/19 - Patient Status Disposition: Home, Self-Care Condition: Good Functional capacity at discharge: independent ambulation - Discharge Instructions Follow Up With: Arslan Gonzalez Jr, MD [Primary Care Provider] - Marysol Plaza CNM [Non-Partnered Physician] - - Diet and Activity Activity: increase activity as tolerated Diet: regular diet Hospital Course Reason for admission: active labor Delivery: Episiotomy: none Laceration: 4th degree (repaired by Dr. Marti) Other procedures: none complications: none Discharge diagnosis: IUP at term delivered [place] baby: male (breast feeding) Time Attestation: Total time spent providing and/or coordinating discharge services: Time Spent: Less than 30 minutes Exam - Constitutional Vitals: Temp Pulse Resp BP Pulse Ox 98.5 F 86 15 92/59 96 05/05/19 08:37 05/05/19 08:37 05/05/19 08:37 05/05/19 08:37 05/05/19 08:37 General appearance IM: A&O X 3, pleasant, answers questions appropriately - Respiratory Respiratory exam: Present: CTAB - Cardiovascular Cardiovascular exam IM: Present: RRR, +S1, +S2 - GI/Abdominal GI/Abdominal exam IM: normal bowel sounds - Uterine Tone: Firm Uterus Position: 2 Fingers Below Umbilicus, Midline - Neurological Exam Neurological exam: alert, oriented X3, reflexes normal
[2019-05-05] MEDS: cephALEXin 500 MG CAPSULE PO SCH (10:54)
[2019-05-05] MEDS: Prenatal Vit/FA 1 EACH TABLET PO SCH (10:54)
== END 2019-05-05 13:57 | disposition home or self-care (01) | DRG 768 ==
LOC: 1NENULAB → OBSVTOIN 02:37 → 1NENUOBS 05-04 03:30
PROVIDERS: ADMIT Registered Nurse; ATTEND Registered Nurse